=== PATIENT | male | born 1940 | race Caucasian/White ===

== ENCOUNTER 2020-07-27 13:28 | Emergency (ER) | payer MEDICARE, OTHER ==
[~2020-07-27] VITALS: Ht 170.2 cm; Wt 93.1 kg
[2020-07-27] MEDS ORDERED: ELIQ5TAB PO (14:26)
[2020-07-27] MEDS ORDERED: ATOR1TAB19 PO (14:26)
[2020-07-27] MEDS ORDERED: METO1TAB7 PO (14:26)
[2020-07-27] MEDS ORDERED: METF-839 PO (14:26)
[2020-07-27] MEDS ORDERED: FURO40TA2 PO (14:26)
--- NOTE | 2020-07-27 15:31 | REP ---
INDICATION: treated for pneumonia, sob COMPARISON: None. TECHNIQUE: PA and lateral. FINDINGS: Vague opacity in the left base suggests lingular infiltrate and correlation is recommended. Remainder of lung soni are relatively clear. No obvious effusion. No pneumothorax. Mediastinum and cardiac silhouette are grossly normal. Evidence for prior sternotomy and aortic valve repair noted. Skeletal structures are intact. IMPRESSION: Findings suggest left basilar/lingular infiltrate. Correlation and follow-up to resolution is recommended. <Electronically signed by Saran Argueta > 07/27/20 1415
[2020-07-27] MEDS ORDERED: TESS100C PO (16:14)
[2020-07-27] MEDS ORDERED: LEVO750T13 PO (16:14)
[2020-07-27 16:22] VITALS: BP 139/65
== END 2020-07-27 16:25 | disposition home or self-care (01) ==
LOC: M ED 13:28
DX: J18.9 Pneumonia, unspecified organism (principal); R09.81 Nasal congestion; R51.9 Headache, unspecified; I48.91 Unspecified atrial fibrillation; I10 Essential (primary) hypertension; Z85.6 Personal history of leukemia; Z95.4 Presence of other heart-valve replacement; Z88.0 Allergy status to penicillin